=== PATIENT | female | born 1990 | race Caucasian/White ===

== ENCOUNTER 2021-12-30 00:08 | Emergency (ER) | payer BC, SELFPAY ==
--- NOTE | ~2021-12-30 | US_ITS ---
EXAMINATION: US ABDOMEN LIMITED CLINICAL INFORMATION: Right upper quadrant pain, . COMPARISON: None TECHNIQUE: Real-time imaging of the right upper quadrant abdominal viscera. FINDINGS: PANCREAS: Normal. LIVER: Normal. The liver is normal in size. The liver contour is normal. Parenchymal echogenicity is normal. No focal hepatic lesion. There is no intrahepatic biliary duct dilatation seen. GALLBLADDER: Multiple stones are seen in the gallbladder lumen. The gallbladder is physiologically distended without polyps, wall thickening or pericholecystic fluid. COMMON BILE DUCT: Normal in caliber measuring 0.4 cm in diameter. RIGHT KIDNEY: Normal. No hydronephrosis. No renal calculi or focal parenchymal lesions. The kidney measures 11.5 cm in maximum dimension. FREE FLUID: None. US/US abdomen limited IMPRESSION: Cholelithiasis. No inflammatory changes of the gallbladder.
[2021-12-30 00:22] VITALS: BP 111/65; PULSE 101; RESP 20; TEMP 37; O2SAT 98; BMI 34.0
--- NOTE | 2021-12-30 01:06 | ED_ITS ---
HPI - Abdominal Pain General Chief Complaint: Abdominal Pain <Maximo Smith MD - Last Filed: 12/30/21 01:22> Stated Complaint: abd pain, lower back pain, recovering from surg <Maximo Smith MD - Last Filed: 12/30/21 01:22> Time Seen by Provider: 12/30/21 00:42 <Maximo Smith MD - Last Filed: 12/30/21 01:22> Source: patient and family <Maximo Smith MD - Last Filed: 12/30/21 01:22> Mode of arrival: ambulatory <Maximo Smith MD - Last Filed: 12/30/21 01:22> Limitations: no limitations <Maximo Smith MD - Last Filed: 12/30/21 01:22> History of Present Illness HPI narrative: 31-year-old female, 5 weeks , status post , presents to the emergency department today with sudden onset of right upper quadrant and right flank pain. Patient states the pain is sharp, severe, and intermittent since starting approximately 2 hours ago. <Maximo Smith MD - Last Filed: 12/30/21 01:22> MD elicited complaint: abdominal pain and flank pain <Maximo Smith MD - Last Filed: 12/30/21 01:22> Pertinent past history: none <Maximo Smith MD - Last Filed: 12/30/21 01:22> Onset (ago): hour(s) (2) <Maximo Smith MD - Last Filed: 12/30/21 01:22> Pain Consistency: intermittent and colicky <Maximo Smith MD - Last Filed: 12/30/21 01:22> Location: RUQ and R flank <Maximo Smith MD - Last Filed: 12/30/21 01:22> Severity: severe <Maximo Smith MD - Last Filed: 12/30/21 01:22> Quality: sharp <Maximo Smith MD - Last Filed: 12/30/21 01:22> Radiation: none <Maximo Smith MD - Last Filed: 12/30/21 01:22> Migration to: no migration <Maximo Smith MD - Last Filed: 12/30/21 01:22> Exacerbating factors: nothing <Maximo Smith MD - Last Filed: 12/30/21 01:22> Relieving factors: nothing <Maximo Smith MD - Last Filed: 12/30/21 01:22> Associated symptoms: nausea and vomiting <Maximo Smith MD - Last Filed: 12/30/21 01:22> Related Data Allergies/Adverse Reactions: Allergies Allergy/AdvReac Type Severity Reaction Status Date / Time No Known Allergies Allergy Verified 12/30/21 00:26 <Maximo Smith MD - Last Filed: 12/30/21 01:22> Review of Systems Constitutional: Denies chills, Denies fever(s) and Denies headache(s) <Maximo Smith MD - Last Filed: 12/30/21 01:22> Eyes: Reports no additional eye complaints <Maximo Smith MD - Last Filed: 12/30/21 01:22> Reports system reviewed and no additional complaints, except as documented and Denies headache(s) <Maximo Smith MD - Last Filed: 12/30/21 01:22> Cardiovascular: Reports no additional cardiovascular complaints and Denies dyspnea <Maximo Smith MD - Last Filed: 12/30/21 01:22> Respiratory: Reports no additional respiratory complaints, Denies cough and Denies dyspnea <Maximo Smith MD - Last Filed: 12/30/21 01:22> Gastrointestinal: Reports as per HPI, Reports abdominal pain, Denies melena, Denies hematochezia and Denies diarrhea <Maximo Smith MD - Last Filed: 12/30/21 01:22> Genitourinary: Denies abnormal vaginal bleeding, Denies hematuria and Denies pelvic pain <Maximo Smith MD - Last Filed: 12/30/21 01:22> Musculoskeletal: Reports no additional musculoskeletal complaints <Maximo Smith MD - Last Filed: 12/30/21 01:22> Skin/Breast: Reports system reviewed and no additional complaints, except as docu <Maximo Smith MD - Last Filed: 12/30/21 01:22> Reports system reviewed and no additional complaints, except as documented, Denies Abnormal speech present and Denies headache(s) <Maximo Smith MD - Last Filed: 12/30/21 01:22> [facility] Past Medical History Attestation statement: The following information was validated with the patient. <Maximo Smith MD - Last Filed: 12/30/21 01:22> [facility] Narrative: No other pertinent past medical history <Maximo Smith MD - Last Filed: 12/30/21 01:22> Social History Social History: Social History Advance Directives: No Advance Directives Information Provided: No <Maximo Smith MD - Last Filed: 12/30/21 01:22> Physical Exam ED Vital Signs: Vital Signs - 24 hr 12/30/21 00:22 Temperature 98.6 F Pulse Rate 101 H Respiratory Rate 20 Blood Pressure 111/65 Pulse Oximetry 98 Oxygen Delivery Method Room Air BMI result Body Mass Index 34.0 <Maximo Smith MD - Last Filed: 12/30/21 01:22> Vital Signs - 24 hr 12/30/21 00:22 Temperature 98.6 F Pulse Rate 101 H Respiratory Rate 20 Blood Pressure 111/65 Pulse Oximetry 98 Oxygen Delivery Method Room Air BMI result Body Mass Index 34.0 <Eduin Mora MD - Last Filed: 12/30/21 03:47> Slight tachycardia noted, afebrile <Maximo Smith MD - Last Filed: 12/30/21 01:22> Const General: cooperative, healthy appearing and acute distress; No comfortable <Maximo Smith MD - Last Filed: 12/30/21 01:22> Nutritional Appearance: average body habitus <Maximo Smith MD - Last Filed: 12/30/21 01:22> Orientation/consciousness: patient oriented x3 <Maximo Smith MD - Last Filed: 12/30/21 01:22> Limitations: no limitations <Maximo Smith MD - Last Filed: 12/30/21 01:22> [facility] Head: Yes normal to inspection, Yes normocephalic and Yes atraumatic <Maximo Smith MD - Last Filed: 12/30/21 01:22> Ears: external ears normal <Maximo Smith MD - Last Filed: 12/30/21 01:22> General nose exam: Normal external nose present <Maximo Smith MD - Last Filed: 12/30/21 01:22> Face and sinus: Yes normal facial exam <Maximo Smith MD - Last Filed: 12/30/21 01:22> Eyes Conjunctivae: conjunctivae normal <Maximo Smith MD - Last Filed: 12/30/21 01:22> Sclerae: sclerae normal <Maximo Smith MD - Last Filed: 12/30/21 01:22> Pupils: Equal, round and reactive pupils present <Maximo Smith MD - Last Filed: 12/30/21 01:22> EOM: EOMs intact bilaterally <Maximo Smith MD - Last Filed: 12/30/21 01:22> Neck Neck: Yes normal visual inspection and Yes full ROM <Maximo Smith MD - Last Filed: 12/30/21 01:22> Resp Effort & Inspection: normal respiratory effort, no cough and respiratory effort not decreased <Maximo Smith MD - Last Filed: 12/30/21 01:22> Cardio Rate: tachycardic <Maximo Smith MD - Last Filed: 12/30/21 01:22> Rhythm: regular rhythm <Maximo Smith MD - Last Filed: 12/30/21 01:22> GI Inspection: Yes normal to inspection and Yes incision <Maximo Smith MD - Last Filed: 12/30/21 01:22> Palpation (GI): Tenderness to palpation present (GI) in the epigastrum and in the RUQ <Maximo Smith MD - Last Filed: 12/30/21 01:22> Auscultation: normal bowel sounds <Maximo Smith MD - Last Filed: 12/30/21 01:22> General: Yes CVA tenderness (Right only) <Maximo Smith MD - Last Filed: 12/30/21 01:22> Back/Spine/Pelvis Back: CVA tenderness (Right only) <Maximo Smith MD - Last Filed: 12/30/21 01:22> Cervical Spine: normal cervical lordosis and cervical ROM normal <Maximo Smith MD - Last Filed: 12/30/21 01:22> Skin General skin exam: no rashes or lesions noted, no jaundice and no pallor <Maximo Smith MD - Last Filed: 12/30/21 01:22> Neuro General: patient oriented x3 and CN's II-XI intact bilaterally <Maximo Smith MD - Last Filed: 12/30/21 01:22> Cranial nerves: Yes Equal, round and reactive pupils present <Maximo Smith MD - Last Filed: 12/30/21 01:22> Cognition (Neuro): normal cognition <Maximo Smith MD - Last Filed: 12/30/21 01:22> Speech: No Abnormal speech present <Maximo Smith MD - Last Filed: 12/30/21 01:22> Gait exam (Neuro): Normal gait present <Maximo Smith MD - Last Filed: 12/30/21 01:22> Course Reevaluation(s) Reevaluation #1: Patient feeling much better now ultrasound showed multiple gallstones without any inflammatory changes patient drinking p.o. fluids will discharge patient home advised to follow surgery <Eduin Mora MD - Last Filed: 12/30/21 03:47> Time: 03:47 <Eduin Mora MD - Last Filed: 12/30/21 03:47> Medications Administered Discontinued Medications Generic Name Dose Route Start Last Admin Trade Name Freq PRN Reason Stop Dose Admin Ketorolac Tromethamine 15 mg 12/30/21 01:15 12/30/21 02:09 Ketorolac Tromethamine 15 Mg/Ml Vial IVPUSH 12/30/21 01:16 15 mg ONCE ONE Administration <Maximo Smith MD - Last Filed: 12/30/21 01:22> Medications Administered Discontinued Medications Generic Name Dose Route Start Last Admin Trade Name Freq PRN Reason Stop Dose Admin Ketorolac Tromethamine 15 mg 12/30/21 01:15 12/30/21 02:09 Ketorolac Tromethamine 15 Mg/Ml Vial IVPUSH 12/30/21 01:16 15 mg ONCE ONE Administration <Eduin Mora MD - Last Filed: 12/30/21 03:47> MDM - Abdominal Pain MDM Narrative Medical decision making narrative: 31-year-old female 5 weeks , status post presents to the emergency department with right upper quadrant abdominal pain which was sudden onset. Further questioning reveals that the patient did have pizza earlier tonight for dinner. Physical exam is consistent with biliary colic. Will administer Toradol and obtain right upper quadrant ultrasound to further delineate the patient's pain. I did explain to the patient that Toradol might be excreted into the breast milk, and that she should pump and dispose for approximately 24 hours. <Maximo Smith MD - Last Filed: 12/30/21 01:22> Lab Data Result diagrams: : 12/30/21 01:42 12/30/21 01:42 <Maximo Smith MD - Last Filed: 12/30/21 01:22> Labs: Lab Results 12/30/21 12/30/21 Range/Units 01:42 01:42 WBC 9.5 (4.8-10.8) X10*3/uL RBC 4.74 (4.20-5.50) X10*6/uL Hgb 12.1 (12.0-16.0) g/dl Hct 37.9 (37.0-47.0) % MCV 80.0 (80.0-98.0) fL MCH 25.5 L (27.0-33.0) pg MCHC 31.9 (31.0-35.0) g/dl RDW 14.2 (11.0-16.0) % Plt Count 214 (160-400) X10*3/uL MPV 9.0 L (9.4-12.3) fL Immature Gran % (Auto) 0.3 (0.0-0.4) % Neut % (Auto) 81.0 H (45-73) % Lymph % (Auto) 9.1 L (20-40) % Callahan % (Auto) 8.0 (2-11) % Eos % (Auto) 1.3 (0-4) % Baso % (Auto) 0.3 (0-2) % Lymph # (Auto) 0.9 L (1.2-4.9) X10*3/uL Callahan # (Auto) 0.8 (0.1-1.2) X10*3/uL Eos # (Auto) 0.1 (0.0-0.4) X10*3/uL Baso # (Auto) 0.0 (0.0-0.2) X10*3/uL Abs Immat Gran (auto) 0.03 (0.00-0.03) X10*3/uL Absolute Neuts (auto) 7.7 (2.0-8.3) x10*3/uL Absolute Nucleated RBC 0.000 (0.0-0.012) X10*3/uL Nucleated RBC % (auto) 0.0 (0.0-0.2) /100WBC Sodium 139 (135-145) mmol/L Potassium 4.7 (3.3-5.1) mmol/L Chloride 101 (96-108) mmol/L Carbon Dioxide 25 (22-29) mmol/L Anion Gap 18 (12-20) BUN 13 (9-16) mg/dL Creatinine 0.77 (0.5-1.4) mg/dL Estim Creat Clear Calc 102.4 Estimated GFR > 60 Random Glucose 106 (60-115) mg/dL Calcium 10.0 (8.4-10.2) mg/dL Total Bilirubin 0.8 (0.0-1.0) mg/dL Direct Bilirubin 0.4 (0.0-0.5) mg/dL AST 215 H (5-31) U/L ALT 70 H (0-31) U/L Alkaline Phosphatase 248 H (39-117) U/L Total Protein 7.3 (6.5-8.0) g/dL Albumin 4.5 (3.5-5.0) g/dL Lipase 24 (8-78) U/L <Maximo Smith MD - Last Filed: 12/30/21 01:22> Lab Results 12/30/21 12/30/21 Range/Units 01:42 01:42 WBC 9.5 (4.8-10.8) X10*3/uL RBC 4.74 (4.20-5.50) X10*6/uL Hgb 12.1 (12.0-16.0) g/dl Hct 37.9 (37.0-47.0) % MCV 80.0 (80.0-98.0) fL MCH 25.5 L (27.0-33.0) pg MCHC 31.9 (31.0-35.0) g/dl RDW 14.2 (11.0-16.0) % Plt Count 214 (160-400) X10*3/uL MPV 9.0 L (9.4-12.3) fL Immature Gran % (Auto) 0.3 (0.0-0.4) % Neut % (Auto) 81.0 H (45-73) % Lymph % (Auto) 9.1 L (20-40) % Callahan % (Auto) 8.0 (2-11) % Eos % (Auto) 1.3 (0-4) % Baso % (Auto) 0.3 (0-2) % Lymph # (Auto) 0.9 L (1.2-4.9) X10*3/uL Callahan # (Auto) 0.8 (0.1-1.2) X10*3/uL Eos # (Auto) 0.1 (0.0-0.4) X10*3/uL Baso # (Auto) 0.0 (0.0-0.2) X10*3/uL Abs Immat Gran (auto) 0.03 (0.00-0.03) X10*3/uL Absolute Neuts (auto) 7.7 (2.0-8.3) x10*3/uL Absolute Nucleated RBC 0.000 (0.0-0.012) X10*3/uL Nucleated RBC % (auto) 0.0 (0.0-0.2) /100WBC Sodium 139 (135-145) mmol/L Potassium 4.7 (3.3-5.1) mmol/L Chloride 101 (96-108) mmol/L Carbon Dioxide 25 (22-29) mmol/L Anion Gap 18 (12-20) BUN 13 (9-16) mg/dL Creatinine 0.77 (0.5-1.4) mg/dL Estim Creat Clear Calc 102.4 Estimated GFR > 60 Random Glucose 106 (60-115) mg/dL Calcium 10.0 (8.4-10.2) mg/dL Total Bilirubin 0.8 (0.0-1.0) mg/dL Direct Bilirubin 0.4 (0.0-0.5) mg/dL AST 215 H (5-31) U/L ALT 70 H (0-31) U/L Alkaline Phosphatase 248 H (39-117) U/L Total Protein 7.3 (6.5-8.0) g/dL Albumin 4.5 (3.5-5.0) g/dL Lipase 24 (8-78) U/L <Eduin Mora MD - Last Filed: 12/30/21 03:47> Discharge Plan Discharge Clinical Impression: Abdominal pain Qualifiers: Abdominal location: right upper quadrant Qualified Code(s): R10.11 - Right upper quadrant pain <Maximo Smith MD - Last Filed: 12/30/21 01:22> Patient Disposition: Still a Patient <Maximo Smith MD - Last Filed: 12/30/21 01:22>
--- OUTSIDE RECORDS SUMMARY | 2021-12-30 01:06 | XMS_ITS | Continuity of Care Document ---
:1990 Author Organization [facility] Address [address] [place] [address] Phone Care Team Providers Name Role Phone Harry DO Soto Primary Care Provider E/R Physician, E Emergency Provider Unavailable Allergies, Adverse Reactions, Alerts No known allergies Social History Smoking Status Status Start Date End Date Date of Observat ion Never smoked tobacco (finding) J [facility] 2021 9:18pm Additional Data Assigned Sex Female Problems Active Problems Medical Problem Onset Date Status Laceration of left middle finger w/o foreign body w/o damage to Active nail Vital Signs Vital Reading Result Reference Range Collection Date/ Time Height 154.94 cm August 03, 2021 9:18pm Weight 89.35 kg August 03, 2021 9:18pm Body Temperature 97.9 [degF] 97.6-99.6 August 03, 2021 9:18pm Heart Rate 89 /min 60-90 August 03, 2021 9:18pm Respiratory rate 18 /min 12-24 August 03, 2021 9:18pm Oxygen saturation by Pulse 100 % 95-100 August 03, 2021 9:18pm oximetry BP Systolic 134 mm[Hg] 90-140 August 03, 2021 9:18pm BP Diastolic 76 mm[Hg] 60-90 August 03, 2021 9:18pm BMI (Body Mass Index) 37.2 kg/m2 August 03, 2021 9:18pm Advance Directives Advance Directive Response Recorded Date/Time Advance Directives No August 03, 2021 10:4 2pm Health Care Proxy No August 03, 2021 10:4 2pm Insurance Providers Guarantor Ana Reyao Address [address] [facility] [address] Contact Info. Home Phone: Payer Policy Id Coverage Id Subscriber's Subscriber Id Effective E xpiration Name Date Date [place] [id number] Rishabh Cannon [id number] Cross [id number] (Out of State) PPO Encounters Encounter Location(s) Arrival/Admit Date Discharge/Depart Date Provider(s) Departed [place] August 03, 2021 August 03, 2021 [facility] 8:47pm 10:47pm y Plan of Treatment Future Tests Future scheduled test information is unavailable Pending Tests Pending diagnostic test information is unavailable Future Visits Future appointment information is unavailable Referrals to Other Providers Reason for Referral Start Provider Provider Contact Provider Address Referral Date Information Jay Durand Phone: [address] DO [facility] [address] Future Procedures Future procedure information is unavailable Future Medications Future medication information is unavailable Patient Instructions ED Laceration, Hand: All Closures Goals Acute Goals Take [id number] anti-inflammatorie s and Tylenol as directed as needed for pain. Keep the affected area clean and dry as instructed. Topical skin adhesive and Steri-Strips w ill fall off on their own. Follow-up with your primary care provide r for further evaluation and care. Return to the ED immediately if you have increased pain, swelling, redness, fevers or any other concerns.
[2021-12-30 01:45] LABS: MANUAL DIFF FLAG NO
[2021-12-30 01:48] LABS: Basophils Percent Auto 0.3 % (0-2); Eosinophils Absolute Auto 0.1 X10*3/uL (0.0-0.4); Eosinophils Percent Auto 1.3 % (0-4); Hematocrit 37.9 % (37.0-47.0); Hemoglobin 12.1 g/dl (12.0-16.0); Imm Gran Abs Auto 0.03 X10*3/uL (0.00-0.03); Imm Gran Pct Auto 0.3 % (0.0-0.4); Lymphocytes Absolute Auto 0.9 X10*3/uL (1.2-4.9); Lymphocytes Percent Auto 9.1 % (20-40); Mean Corpuscular HGB Conc 31.9 g/dl (31.0-35.0); Mean Corpuscular Hemoglobin 25.5 pg (27.0-33.0); Monocytes Absolute Auto 0.8 X10*3/uL (0.1-1.2); Neutrophils Absolute Auto 7.7 x10*3/uL (2.0-8.3); Platelet Count 214 X10*3/uL (160-400); Red Blood Count 4.74 X10*6/uL (4.20-5.50); Red Cell Distribution Width 14.2 % (11.0-16.0); White Blood Count 9.5 X10*3/uL (4.8-10.8)
[2021-12-30 02:06] LABS: Alanine Aminotransferase 70 U/L (0-31); Albumin Level 4.5 g/dL (3.5-5.0); Alkaline Phosphatase 248 U/L (39-117); Anion Gap 18 (12-20); Aspartate Amino Transferase 215 U/L (5-31); Bilirubin Direct 0.4 mg/dL (0.0-0.5); Bilirubin Total 0.8 mg/dL (0.0-1.0); Blood Urea Nitrogen 13 mg/dL (9-16); Carbon Dioxide 25 mmol/L (22-29); Chloride 101 mmol/L (96-108); Creatinine Clr Calc Pharmacy 102.4; Estimated Glomerular Filt Rate > 60; Glucose Random 106 mg/dL (60-115); Lipase 24 U/L (8-78); Potassium 4.7 mmol/L (3.3-5.1); Sodium 139 mmol/L (135-145); Total Protein 7.3 g/dL (6.5-8.0)
[2021-12-30] MEDS: Ketorolac Tromethamine 15 MG/ML VIAL IVPUSH (02:09)
== END 2021-12-30 04:10 | disposition home or self-care (01) ==
PROVIDERS: Emergency Provider Emergency Medicine
DX: R10.11 Right upper quadrant pain (principal); R00.0 Tachycardia, unspecified
CPT/HCPCS: 36415; 76705; 80048; 80076; 83690; 85025; 96374; 99283; 99284; J1885